=== PATIENT | male | born 1945 | race Caucasian/White ===

== ENCOUNTER 2023-11-18 22:29 | Emergency (ER) | payer MEDICARE ==
--- NOTE | 2023-11-19 01:44 | ED Physician Documentation ---
History of Present Illness - Stated complaint Stated Complaint: SORE THROAT/HERRERA - Chief complaint Chief Complaint: General - Additonal information Additional information: 78-year-old male presents to the emergency department with sore throat, cough, congestion. Comes from [place] on vacation. Symptoms began 2-3 days ago. Tested positive for COVID at home. Denies chronic medical issues or taking prescription medications with the exception of some eyedrops for macular degeneration. Review of Systems Constitutional: reports: Fever, Myalgias Eyes: denies: Loss of vision Ears: denies: Loss of hearing Nose: reports: Rhinorrhea / runny nose, Congestion Throat: reports: Sore throat Respiratory: reports: Cough GI: denies: Nausea, Vomiting : denies: Dysuria PD PAST MEDICAL HISTORY - Past Medical History Past Medical History: Yes HEENT: Other - Past Surgical History Past Surgical History: Yes Ortho: Hip replacement HEENT: Other - Present Medications Home Medications: Ambulatory Orders Medication Instructions Recorded Confirmed Nirmatrelvir/Ritonavir [Paxlovid 1 each PO ONCE #1 tab 11/19/23 300-100 mg Dose Pack] prednisoLONE 1% OPHTH DROPS [Pred 11/19/23 Forte 1% Ophth Drops] - Allergies Allergies/Adverse Reactions: Allergies Allergy/AdvReac Type Severity Reaction Status Date / Time No Known Drug Allergies Allergy Verified 11/18/23 22:34 - Social History Does the pt smoke?: No Smoking Status: Never smoker Does the pt drink ETOH?: No Does the pt have substance abuse?: No - Immunizations Immunizations are current?: Yes PD ED PE NORMAL - General General: Alert and oriented X 3, No acute distress, Well developed/nourished - HEENT HEENT: Atraumatic, PERRL, EOMI, Ears normal, Moist mucous membranes, Pharynx benign - Neck Neck: Supple, no meningeal sign, No bony TTP, No adenopathy, Thyroid normal, No JVD, No bruit, C-Spine cleared by NEXUS criteria - Cardiac Cardiac: RRR - Respiratory Respiratory: No respiratory distress, Clear bilaterally - Abdomen Abdomen: Normal bowel sounds, Non tender - Male Male : Deferred - Rectal Rectal: Deferred - Back Back: No CVA TTP - Derm Derm: Normal color - Extremities Extremities: No deformity - Neuro Neuro: Alert and oriented X 3, 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 Tested positive for COVID at home. Afebrile, Hemodynamically stable on arrival to the emergency department.Clear aeration in all lung singh. HEENT exam benign. No indications hypoxic respiratory failure or respiratory distress. No clinical indications COVID-pneumonia. Discussed nature of SARS COVID virus. Patient offered Paxlovid. Long detailed discussion about the best evidence as well as risks of taking this medication. They are interested in starting Paxlovid. Will write prescription as patient does not have a pharmacy in the area with whom they are established. Will encourage use [id number] medications for symptomatic management. Departure - Departure Disposition: 01 Home, Self Care Clinical Impression: Breakthrough COVID-19 after SARS-CoV-2 vaccination Instructions: ED Viral Syndrome Prescriptions: Nirmatrelvir/Ritonavir [Paxlovid 300-100 mg Dose Pack] 1 each PO ONCE #1 tab Comments: Thank you for allowing us to care for you today at [facility]. I have written a prescription for the medication Paxlovid. As we discussed there are several evidence that use of this medication can decrease your risk for more significant complications of the SARS COVID virus. I recommend regular use [id number] medication such as ibuprofen, acetaminophen, Mucinex, Sudafed for management of fever, cough, congestion or body ache. Please drink plenty fluids and get plenty of rest. Please follow-up with your primary care doctor soon as able. If it anytime you have new or worsening symptoms please not hesitate to return.
[2023-11-19 01:45] VITALS: BP 136/82; O2SAT 95
[2023-11-19] MEDS: ACETAMINOPHEN 325 MG TABLET PO STA (01:47)
== END 2023-11-19 02:03 | disposition home or self-care (01) ==
LOC: ED 22:29
DX: U07.1 COVID-19 (principal); H35.30 Unspecified macular degeneration
CPT/HCPCS: 99282; 99283; A9270